=== PATIENT | female | born 1935 | race Caucasian/White ===

== ENCOUNTER → 2017-03-20 | Outpatient (CLI) | payer MEDICARE ==
[~2017-03-20] MED LIST: CHOLESTEROL PILL; CYCL10TA9 PO; HYDR-3714 PO; LVT.1T PO; ONDA-42 SL; PRED20TA PO
--- NOTE | 2017-03-20 19:06 | Diagnostic Imaging Report ---
Bilateral diagnostic mammogram. The current study was also evaluated with a Computer Aided Detection (CAD) system. INDICATION: Palpable lump in the medial aspect of the left breast. COMPARISON: 04/17/2016. FINDINGS: There is a cardiac rehabilitation program director implanted in the medial aspect of the left breast adjacent to the palpable area with no other underlying abnormality seen. The breast parenchyma is heterogeneously dense which may decrease mammographic sensitivity. Scattered benign-appearing calcifications seen. There is no significant change from the prior exam. IMPRESSION: No mammographic evidence of malignancy. Ultrasound evaluation pending. ACR BI-RADS Category 0: Incomplete. (Needs additional imaging evaluation). Result letter will be mailed to the patient. Note: At least 10% of breast cancer is not imaged by mammography. Dictated by: Dictated on workstation # [id number]
--- NOTE | 2017-03-20 19:09 | Diagnostic Imaging Report ---
Ultrasound of the left breast. INDICATION: Palpable lump in the medial aspect of the left breast. FINDINGS: The palpable area corresponds with the implanted photogeologist with no underlying mass identified. IMPRESSION: No suspicious lesion is seen. ACR BI-RADS Category 2: Benign findings. Dictated by: Dictated on workstation # [id number]
== END ==
LOC: RAD 13:36
PROVIDERS: ATTEND Nurse Practitioner
DX: N63 Unspecified lump in breast (principal)
CPT/HCPCS: 76642; 77066

== ENCOUNTER → 2018-11-06 | Outpatient (CLI) | payer MEDICARE ==
--- NOTE | 2018-11-06 15:21 | Diagnostic Imaging Report ---
PROCEDURE: CT head without contrast. TECHNIQUE: Multiple contiguous axial images were obtained through the brain without the use of intravenous contrast. INDICATION: Headaches. Comparison is made with prior head CT from 12/20/2008. The ventricles and sulci appear appropriate for the patient's age. No sulcal effacement is seen. There is no midline shift. No acute intra-axial or extra-axial hemorrhage is detected. Cisterns are patent. The visualized paranasal sinuses are clear. IMPRESSION: No acute intracranial process is detected. Dictated by: Dictated on workstation # [id number]
== END ==
LOC: RAD 13:57
PROVIDERS: ATTEND Internal Medicine
DX: R51 Headache (principal)
CPT/HCPCS: 70450

== ENCOUNTER 2018-11-11 11:45 | Emergency (ER) | payer MEDICARE ==
[~2018-11-11] VITALS: Ht 163.8 cm; Wt 100.7 kg
--- OUTSIDE RECORDS SUMMARY | 2018-11-11 11:51 | XMS REPORT | Clinical Summary ---
Author Author [facility] Organization [facility] Address Unknown Phone Unavailable Care Team Providers Care Hand Laster Name Role Phone Malcom Willis MD Unavailable Source Comments Some departments are not documenting in the electronic medical record. If you do not see the information that you expected, contact Release of Information in the Health Information Management department at [phone] for further assistance in locating additional records.[facility] Allergies Comments Active Allergy Reactions Severity Noted Date bleeding Cephalexin SEE COMMENTS High 05/21/2013 Penicillins HIVES 03/19/2013 Vancomycin RASH Medium 05/24/2016 Medications End Date Status Medication Sig Dispensed Refills Start Date Active levothyroxine (SYNTHROID) Take 100 mcg 0 100 mcg tablet by mouth daily. Active aspirin 81 mg chewable Take 81 mg by 0 tablet mouth daily. Active MULTIVITAMIN Take 1 Tab by 0 W-MINERALS/LUTEIN mouth daily. (CENTRUM SILVER PO) Active CALCIUM CARBONATE/VITAMIN Take 1 Tab by 0 D3 (CALCIUM 600 + D PO) mouth twice daily. Active Hhrtt-4-WXF-EPA-Fish Oil Take 1 Tab by 0 1,000 (120-180) mg cap mouth daily. Active ibuprofen (MOTRIN) 200 mg Take 200 mg 0 tablet by mouth daily. Active acetaminophen (TYLENOL) Take 500 mg 0 500 mg tablet by mouth daily. Active oxybutynin (DITROPAN) 5 Take 1 Tab by 30 Tab 1 10/28/201 mg tablet mouth at 5 bedtime daily. Active atorvastatin (LIPITOR) 10 Take 10 mg by 0 mg tablet mouth daily. Active Problems Problem Noted Date Urge urinary incontinence 03/19/2013 Overview: Status post sling in 2011 which improved DELICIA but worsened UUI. Only taken imipramine; no history of anticholinergic use. Attempted oxybutynin TID, but cannot tolerate, so only takes it daily. 05/24/2016 - patient was referred to PFRT but patient was not able to initiate active contractions of her pelvic floor muscles and therefor unable to perform any strengthening exercises. L ast Assessment & Plan: She would like to attempt pelvic floor muscle training prior to undergoing an invasive procedure. - Rx given for pelvic floor muscle training - Urge suppression information given - Information on botox given and instructed to call if she would like to proceed. Family History Medical History Relation Name Comments Heart Attack Father Heart Disease Father Hypertension Father Cancer Maternal BREAST Grandmother Cancer Mother LUNG Kidney Disease Mother Heart Attack Paternal Grandfather Relation Name Status Comments Father Maternal Grandmother Mother Paternal Grandfather Social History Date Tobacco Use Types Packs/Day Years Used Never Smoker Smokeless Tobacco: Never Used Alcohol Use Drinks/Week oz/Week Comments No Sex Assigned at Date Recorded Not on file Industry Job Start Date Occupation Not on file Not on file Not on file Travel End Travel History Travel Start No recent travel history available. Last Filed Vital Signs Time Taken Vital Sign Reading 05/24/2016 3:28 PM CDT Blood Pressure 130/57 05/24/2016 3:28 PM CDT Pulse 77 - Temperature - - Respiratory Rate - - Oxygen Saturation - - Inhaled Oxygen - Concentration 05/24/2016 3:28 PM CDT Weight 96.8 kg (213 lb 6.4 oz) 05/24/2016 3:28 PM CDT Height 162.6 cm (5' 4") 05/24/2016 3:28 PM CDT Body Mass Index 36.63 Plan of Treatment Health Maintenance Due Date Last Done Comments PHYSICAL (COMPREHENSIVE) 1944 EXAM DTAP/TDAP VACCINES (1 - 1955 Tdap) SHINGLES RECOMBINANT 1987 VACCINE (1 of 2) OSTEOPOROSIS 2002 SCREENING/MONITORING PNEUMONIA (PCV13/PPSV23) 2002 VACCINES (1 of 2 - PCV13) INFLUENZA VACCINE 06/11/2018 Results Not on filefrom Last 3 Months
--- OUTSIDE RECORDS SUMMARY | 2018-11-11 11:52 | XMS REPORT | Continuity of Care Document ---
Author Author [facility] Organization [facility] Address Unknown Phone Unavailable Allergies Active Description Code Type Severity Reaction Onset Reported/Identified Relationship to Patient Clinical Status Yes cephalexin [id number] Drug Allergy Unknown N/A 02/13/2008 Yes Penicillins [id number] Drug Allergy Unknown N/A 02/13/2008 Medications There is no data. Problems Date Dx Coded Attending Type Code Diagnosis Diagnosed By 10/10/1519 NICK PLATA APRN Ot M54.12 RADICULOPATHY, CERVICAL REGION 10/30/2010 Ot 721.0 10/30/2010 Ot 723.1 12/18/2011 Ot 780.2 SYNCOPE AND COLLAPSE 12/31/2012 Ot 726.5 ENTHESOPATHY OF HIP 12/31/2012 Ot V57.1 PHYSICAL THERAPY NEC 07/24/2013 NICK PLATA APRN Ot 726.5 ENTHESOPATHY OF HIP 07/24/2013 NICK PLATA APRN Ot V57.1 PHYSICAL THERAPY NEC 02/03/2015 NICK PLATA APRN Ot 715.96 02/03/2015 NICK PLATA APRN Ot 959.7 02/03/2015 NICK PLATA APRN Ot E000.8 02/03/2015 NICK PLATA APRN Ot E849.0 02/03/2015 NICK PLATA APRN Ot E888.9 02/19/2015 CLIFF TORRES, LOU Preston Ot 720.2 SACROILIITIS NEC 02/19/2015 CLIFF TORRES, LOU Preston Ot 724.3 SCIATICA 03/07/2015 Ot V76.12 03/07/2015 Ot 787.02 03/07/2015 Ot 789.00 03/07/2015 Ot 786.2 03/07/2015 Ot 789.01 03/07/2015 Ot V76.12 03/07/2015 Ot 433.10 03/07/2015 Ot 496 03/07/2015 Ot 244.9 03/07/2015 Ot 272.4 03/07/2015 Ot 287.5 03/07/2015 Ot 401.9 03/07/2015 Ot V76.12 03/07/2015 Ot 780.2 03/07/2015 Ot 496 03/07/2015 Ot V76.12 03/07/2015 ROCIO TORRES, ADRIAN Hillman Ot 433.10 03/07/2015 NICK PLATA HYDROGRAPHIC SURVEYOR Ot 715.96 03/07/2015 NICK PLATA HYDROGRAPHIC SURVEYOR Ot 959.7 03/07/2015 NICK PLATA HYDROGRAPHIC SURVEYOR Ot E000.8 03/07/2015 NICK PLATA HYDROGRAPHIC SURVEYOR Ot E849.0 03/07/2015 NICK PLATA HYDROGRAPHIC SURVEYOR Ot E888.9 04/09/2015 ADRIAN CHAN MD Ot 786.09 04/21/2015 ADRIAN CHAN MD Ot V76.12 05/06/2015 ADRIAN CHAN MD Ot 786.09 04/17/2016 ADRIAN CHAN MD Ot Z12.31 ENCNTR SCREEN MAMMOGRAM FOR MALIGNANT NE 04/18/2016 ADRIAN CHAN MD Ot Z12.31 ENCNTR SCREEN MAMMOGRAM FOR MALIGNANT NE 04/19/2016 ADRIAN CHAN MD Ot Z12.31 ENCNTR SCREEN MAMMOGRAM FOR MALIGNANT NE 04/23/2016 ADRIAN CHAN MD Ot Z12.31 ENCNTR SCREEN MAMMOGRAM FOR MALIGNANT NE 05/08/2016 ADRIAN CHAN MD Ot Z12.31 ENCNTR SCREEN MAMMOGRAM FOR MALIGNANT NE 06/06/2016 NICK PLATA HYDROGRAPHIC SURVEYOR Ot M54.12 RADICULOPATHY, CERVICAL REGION 07/04/2016 ADRIAN CHAN MD Ot M54.2 CERVICALGIA 07/04/2016 ADRIAN CHAN MD Ot R20.0 ANESTHESIA OF SKIN 07/06/2016 Ot 496 CHR AIRWAY OBSTRUCT NEC 07/06/2016 Ot 244.9 HYPOTHYROIDISM NOS 07/06/2016 Ot 272.4 HYPERLIPIDEMIA NEC/NOS 07/06/2016 Ot 287.5 THROMBOCYTOPENIA NOS 07/06/2016 Ot 401.9 HYPERTENSION NOS 07/06/2016 Ot V76.12 OTH SCREEN MAMMO-MALIGN NEOPLASM OF REBEKA 07/06/2016 Ot 780.2 SYNCOPE AND COLLAPSE 07/06/2016 Ot 496 CHR AIRWAY OBSTRUCT NEC 07/06/2016 Ot V76.12 OTH SCREEN MAMMO-MALIGN NEOPLASM OF REBEKA 07/06/2016 ROCIO TORRES, ADRIAN Hillman Ot 433.10 CAROTID ARTERY OCCLUSION W O CEREBRAL IN 07/06/2016 NICK PLATA HYDROGRAPHIC SURVEYOR Ot 715.96 OSTEOARTHROS NOS-L/LEG 07/06/2016 NICK PLATA HYDROGRAPHIC SURVEYOR Ot 959.7 LOWER LEG INJURY NOS 07/06/2016 NICK PLATA HYDROGRAPHIC SURVEYOR Ot E000.8 OTHER EXTERNAL CAUSE STATUS 07/06/2016 NICK PLATA HYDROGRAPHIC SURVEYOR Ot E849.0 ACCIDENT IN HOME 07/06/2016 NICK PLATA HYDROGRAPHIC SURVEYOR Ot E888.9 FALL NOS 07/06/2016 ADRIAN CHAN MD Ot 786.09 RESPIRATORY ABNORM NEC 07/06/2016 ADRIAN CHAN MD Ot V76.12 OTH SCREEN MAMMO-MALIGN NEOPLASM OF REBEKA 07/06/2016 ADRIAN CHAN MD Ot Z12.31 ENCNTR SCREEN MAMMOGRAM FOR MALIGNANT NE 07/06/2016 NICK PLATA HYDROGRAPHIC SURVEYOR Ot M54.12 RADICULOPATHY, CERVICAL REGION 07/06/2016 ADRIAN CHAN MD Ot M54.2 CERVICALGIA 07/06/2016 ADRIAN CHAN MD Ot R20.0 ANESTHESIA OF SKIN 07/06/2016 NICK PLATA HYDROGRAPHIC SURVEYOR Ot M54.12 RADICULOPATHY, CERVICAL REGION 07/17/2016 NICK PLATA HYDROGRAPHIC SURVEYOR Ot M54.12 RADICULOPATHY, CERVICAL REGION 03/11/2017 NICK PLATA HYDROGRAPHIC SURVEYOR Ot N63 UNSPECIFIED LUMP IN BREAST 03/20/2017 NICK PLATA HYDROGRAPHIC SURVEYOR Ot N63 UNSPECIFIED LUMP IN BREAST 03/20/2017 NICK PLATA HYDROGRAPHIC SURVEYOR Ot N63 UNSPECIFIED LUMP IN BREAST 03/21/2017 NICK PLATA HYDROGRAPHIC SURVEYOR Ot N63 UNSPECIFIED LUMP IN BREAST 03/21/2017 NICK PLATA R HYDROGRAPHIC SURVEYOR Ot N63 UNSPECIFIED LUMP IN BREAST 03/21/2017 NICK PLATA HYDROGRAPHIC SURVEYOR Ot N63 UNSPECIFIED LUMP IN BREAST 04/22/2017 NICK PLATA HYDROGRAPHIC SURVEYOR Ot N63 UNSPECIFIED LUMP IN BREAST 04/26/2017 NICK PLATA HYDROGRAPHIC SURVEYOR Ot N63 UNSPECIFIED LUMP IN BREAST Procedures There is no data. Results There is no data. Encounters ACCT No. Visit Date/Time Discharge Status Pt. Type Provider Facility Loc./Unit Complaint [id number] 10/27/2018 15:31:00 10/27/2018 23:59:59 CLS Preadmit ADRIAN CHAN MD [facility] RAD HEADACHES [id number] 03/20/2017 13:36:00 03/20/2017 23:59:59 CLS Outpatient NICK PLATA APRN [facility] RAD BREAST LUMP ABNORMALITY N63 [id number] 06/22/2016 15:30:00 07/17/2016 15:20:00 DIS Outpatient NICK PLATA APRN [facility] REHAB CERVICAL RADICULOPATHY [id number] 07/02/2016 15:27:00 07/02/2016 23:59:59 CLS Outpatient ADRIAN CHAN MD [facility] RAD NECK PAIN [id number] 04/17/2016 14:14:00 04/17/2016 23:59:59 CLS Outpatient ADRIAN CHAN MD [facility] RAD SCREENING [id number] 12/17/2015 16:23:00 12/17/2015 23:59:59 CLS Outpatient ERIN TAMEZ [facility] QUICK [id number] 03/30/2015 10:54:00 03/30/2015 23:59:59 CLS Outpatient ADRIAN CHAN MD [facility] RAD SCREENING [id number] 03/07/2015 11:37:00 03/07/2015 23:59:59 CLS Outpatient ADRIAN CHAN MD [facility] RAD DYSPENA [id number] 02/19/2015 13:42:00 02/19/2015 14:50:00 DIS Emergency LOU CORONADO MD [facility] ER BACK PAIN [id number] 07/26/2014 15:50:00 07/26/2014 23:59:59 CLS Outpatient NICK PLATA APRN [facility] RAD LT KNEE PAIN [id number] 01/23/2014 16:41:00 01/23/2014 23:59:59 CLS Outpatient [id number] 07/09/2013 12:00:00 07/24/2013 13:48:00 DIS Outpatient NICK PLATA APRN [facility] REHAB HIP BURSITIS [id number] 06/24/2013 12:00:00 06/24/2013 23:59:59 CLS Outpatient ADRIAN CHAN MD [facility] RAD CAROTID OCCLUSIVE DISEASE [id number] 03/07/2015 11:37:00 Document Registration [id number] 03/07/2015 11:37:00 Document Registration [id number] 12/31/2012 13:46:00 Document Registration [id number] 12/18/2012 11:37:00 Document Registration [id number] 01/23/2012 16:45:00 Document Registration [id number] 12/19/2011 11:00:00 Document Registration [id number] 11/15/2011 11:26:00 Document Registration [id number] 09/21/2011 10:33:00 Document Registration [id number] 09/19/2011 10:46:00 Document Registration [id number] 03/21/2011 08:12:00 Document Registration [id number] 11/09/2010 10:54:00 Document Registration [id number] 10/30/2010 19:38:00 Document Registration [id number] 10/24/2010 09:19:00 Document Registration [id number] 06/08/2010 07:51:00 Document Registration [id number] 02/08/2010 13:09:00 Document Registration [id number] 12/28/2009 08:54:00 Document Registration [id number] 10/18/2009 09:38:00 Document Registration [id number] 03/30/2015 10:54:58 ACT Document Registration
[2018-11-11 12:17] LABS: BILIRUBIN,URINE NEGATIVE (NEGATIVE); CLARITY,URINE BLOODY; COLOR,URINE RED; GLUCOSE, URINE (UA) NEGATIVE (NEGATIVE); KETONES,URINE 1+ (NEGATIVE); LEUKOCYTE ESTERASE ,URINE 3+ (NEGATIVE); NITRITE,URINE POSITIVE (NEGATIVE); PH,URINE 7 (5-9); PROTEIN,URINE 3+ (NEGATIVE); UROBILINOGEN,URINE 1 MG/DL (NORMAL)
--- NOTE | 2018-11-11 12:28 | ED GU-Female ---
General Chief Complaint: -Female Stated Complaint: ABD PAIN,BLEEDING Nursing Triage Note: Pt ambulated to rm 9 w/o difficulty. Pt c/o frequency, hematuria, and dysuria that began last night and has worsened today. Nursing Sepsis Screen: No Definite Risk Source: patient Exam Limitations: no limitations History of Present Illness Date Seen by Provider: Nov 11, 2018 Time Seen by Provider: 12:15 Initial Comments Here with report of urinary frequency with some pain and notes some blood in her urine that is worse today. States that she's felt off for a couple days. Denies vomiting but does have some nausea. Denies fevers but did have some chills yesterday. Timing/Duration: yesterday, getting worse Severity/Quality: moderate, cramping Location: suprapubic Radiation: none Activities at Onset: none Modifying Factors: Improves With Resting; Worsens With Urinating Associated Symptoms: dysuria, urinary frequency Allergies and Home Medications Allergies Coded Allergies: Cephalexin (Verified Allergy, Unknown, 02/13/08) Penicillins (Verified Allergy, Unknown, 02/13/08) Home Medications Cyclobenzaprine Hcl 10 Mg Tablet, 1 EACH PO Q8H PRN for SPASMS Prescribed by: LOU NESBITT on 02/19/15 1443 Hydrocodone Bit/Acetaminophen 1 Tab Tablet, 1-2 TAB PO Q4H PRN for PAIN Prescribed by: LOU NESBITT on 02/19/15 1443 Levothyroxine Sodium 100 Mcg Tablet, PO DAILY, (Reported) Ondansetron Hcl 4 Mg Tab, 4 MG SL Q4H PRN Prescribed by: LOU NESBITT on 02/19/15 1443 Prednisone 20 Mg Tablet, 40 MG PO DAILY Prescribed by: LOU NESBITT on 02/19/15 1443 Patient Home Medication List Home Medication List Reviewed: Yes Review of Systems Review of Systems Constitutional: see HPI, chills; No fever EENTM: no symptoms reported Respiratory: no symptoms reported Cardiovascular: no symptoms reported Gastrointestinal: see HPI Genitourinary: see HPI Musculoskeletal: no symptoms reported Skin: no symptoms reported Past Rmppfmt-Rxpsui-Pcxzps Hx Patient Social History Alcohol Use: Denies Use Recreational Drug Use: No 2nd Hand Smoke Exposure: No Recent Foreign Travel: No Contact w/Someone Who Travel: No Recent Infectious Disease Expo: No Recent Hopitalizations: Yes (LEG SURGERY, REACTION TO MEDICATION CAUSED HEMMORAGES DECREASED PLATLETS) Physical Abuse: No Sexual Abuse: No Past Medical History Surgeries: Yes (LEG SURGERY, L KNEE) Coronary Stent, Joint Replacement, Orthopedic Respiratory: Yes ("HOLDS IN TOO MUCH O2") Cardiac: Yes Coronary Artery Disease Neurological: No Reproductive Disorders: No Gastrointestinal: No Musculoskeletal: Yes Arthritis Endocrine: Yes Hypothyroidsim Cancer: No Psychosocial: Yes Blood Disorders: No Family Medical History Reviewed Nursing Family Hx Physical Exam Vital Signs Vital Signs - First Documented 11/11/18 11:52 Temp 98.5 Pulse 86 Resp 15 B/P (MAP) 148/83 (104) Pulse Ox 100 O2 Delivery Room Air Capillary Refill : Less Than 3 Seconds Height, Weight, BMI Height: 5'4.50" Weight: 222lbs. oz. 100.599609fp; BMI Method:Stated General Appearance: WD/WN, no apparent distress Cardiovascular: regular rate, rhythm, no murmur Respiratory: lungs clear, normal breath sounds Gastrointestinal: soft; No guarding, No rebound; tenderness (suprapubic) Back: normal inspection, no CVA tenderness, no vertebral tenderness Neurologic/Psychiatric: alert, oriented x 3 Skin: normal color, warm/dry Progress/Results/Core Measures Suspected Sepsis Recent Fever Within 48 Hours: No Infection Criteria Present: None New/Unexplained Altered Menta: No Sepsis Screen: No Definite Risk SIRS Temperature:98.5 Pulse: 86 Respiratory Rate: 15 Blood Pressure 148 /83 Mean: 104 Results/Orders Lab Results Laboratory Tests Test 11/11/18 11:55 Range/Units Urine Color RED H Urine Clarity BLOODY H Urine pH 7 5-9 Urine Specific Delta 1.010 L 1.016-1.022 Urine Protein 3+ H NEGATIVE Urine Glucose (UA) NEGATIVE NEGATIVE Urine Ketones 1+ H NEGATIVE Urine Nitrite POSITIVE H NEGATIVE Urine Bilirubin NEGATIVE NEGATIVE Urine Urobilinogen 1 NORMAL MG/DL Urine Leukocyte Esterase 3+ H NEGATIVE Urine RBC (Auto) 5+ H NEGATIVE Urine RBC TNTC H /HPF Urine WBC TNTC H /HPF Urine Squamous Epithelial Cells 2-5 /HPF Urine Crystals NONE /LPF Urine Bacteria LARGE H /HPF Urine Casts NONE /LPF Urine Mucus NEGATIVE /LPF Urine Culture Indicated YES My Orders Orders - HENRI GUILLEN MD Ua Culture If Indicated (11/11/18 12:12) Vital Signs/I&O 11/11/18 11:52 Temp 98.5 Pulse 86 Resp 15 B/P (MAP) 148/83 (104) Pulse Ox 100 O2 Delivery Room Air Capillary Refill : Less Than 3 Seconds Blood Pressure Mean: 104 Progress Note : Progress Note Seen and evaluated. UA ordered. Monitor patient. 1245: UA positive. We will initiate nitrofurantoin due to her allergies. This will be started as a prescription. She will get that filled today and start first dose when she picks it up. Discharged home with return precautions. Patient verbalize understanding instructions and agreement with plan. Departure Impression Primary Impression: Urinary tract infection Qualified Codes: N30.01 - Acute cystitis with hematuria Disposition: HOME, SELF-CARE Condition: Improved Departure-Patient Inst. Decision time for Depature: 12:47 Referrals: ADRIAN CHAN MD (PCP/Family) Primary Care Physician Patient Instructions: Urinary Tract Infection, Adult (DC) Add. Discharge Instructions: All discharge instructions reviewed with patient and/or family. Voiced understanding. Drink plenty of fluids. Take medications as directed. You should take your first dose of antibiotic is some nausea given and the next dose tonight before he got a bed. Then start twice daily dosing tomorrow as prescribed. Follow-up with your DrTavo in a few days for recheck. Return for worse pain, fever, vomiting , weakness, breathing problems or other concerns as needed. Scripts Nitrofurantoin Macrocrystal (Nitrofurantoin) 100 Mg Capsule 100 MG PO BID, #14 CAP 0 Refills Prov: HENRI GUILLEN MD 11/11/18 HENRI GUILLEN MD Nov 11, 2018 12:28
[2018-11-11 12:33] LABS: RBC,URINE TNTC /HPF; WBC,URINE TNTC /HPF
[2018-11-11 12:34] LABS: BACTERIA,URINE LARGE /HPF
[2018-11-11] MEDS ORDERED: NITR100C PO (12:46)
[2018-11-11 12:50] VITALS: BP 148/83
== END 2018-11-11 12:50 | disposition home or self-care (01) ==
LOC: EDUNIT# 11:45 → ER 11:46
DX: N39.0 Urinary tract infection, site not specified (principal); I25.10 Atherosclerotic heart disease of native coronary artery without angina pectoris; E03.9 Hypothyroidism, unspecified; Z88.0 Allergy status to penicillin; Z88.1 Allergy status to other antibiotic agents; Z79.52 Long term (current) use of systemic steroids; Z98.890 Other specified postprocedural states; Z95.5 Presence of coronary angioplasty implant and graft
CPT/HCPCS: 81000; 87077; 87088; 99282

== ENCOUNTER → 2019-04-09 | Outpatient (CLI) | payer MEDICARE ==
[~2019-04-09] MED LIST changes: +NITR100C PO
[2019-04-09 13:07] LABS: HEMOGLOBIN 13.7 G/DL (11.5-16.0); RED CELL DISTRIBUTION WIDTH 12.6 % (10.0-14.5); WHITE BLOOD COUNT 6.8 10^3/uL (4.3-11.0)
[2019-04-09 13:32] LABS: ALANINE AMINOTRANSFERASE 16 U/L (0-55); ALBUMIN 4.3 GM/DL (3.2-4.5); ALKALINE PHOSPHATASE 119 U/L (40-136); BILIRUBIN,TOTAL 0.8 MG/DL (0.1-1.0); BUN/CREATININE RATIO 18; CALCIUM 10.2 MG/DL (8.5-10.1); CARBON DIOXIDE 24 MMOL/L (21-32); CHLORIDE 101 MMOL/L (98-107); CREATININE SERUM 0.76 MG/DL (0.60-1.30); GFR ESTIMATED > 60; GLUCOSE 90 MG/DL (70-105); POTASSIUM 4.3 MMOL/L (3.6-5.0); SODIUM 134 MMOL/L (135-145); TOTAL PROTEIN 7.4 GM/DL (6.4-8.2)
--- NOTE | 2019-04-09 13:49 | Diagnostic Imaging Report ---
PROCEDURE: CT head without contrast. TECHNIQUE: Multiple contiguous axial images were obtained through the brain without the use of intravenous contrast. Auto Exposure Controls were utilized during the CT exam to meet ALARA standards for radiation dose reduction. INDICATION: Dizziness and not feeling well. Study compared 11/06/2018. There is no intracranial hemorrhage. There is mild periventricular white matter disease chronic and commonly encountered in patient's of this age and most often attributed to small vessel sequelae. No sulcal effacement. The basilar cisterns are patent. No loss of the cortical aleman-white matter differentiations. There is mild intracranial atherosclerotic vascular calcifications chronic. No focal or generalized cerebral edema. No mass or mass effect. No evidence for elevated pressures. Orbits, sinuses and calvarium appeared nonacute where visualized. IMPRESSION: Stable mild chronic senescent findings with no hemorrhage, edema or acute finding. Dictated by: Dictated on workstation # [id number]
--- NOTE | 2019-04-09 14:00 | Diagnostic Imaging Report ---
INDICATION: Shortness of breath, dizziness, headache, and fatigue. TECHNIQUE: Two-view chest at 01:22 p.m. CORRELATION STUDY: 03/07/2015. FINDINGS: The heart size, mediastinal configuration and pulmonary vasculature are within normal limits. Loop recorder device has been placed projecting over the left anterior chest. Densely calcified right hilar and subcarinal granulomas are again demonstrated. The lungs are clear with no consolidating infiltrate. There is no significant pleural effusion or pneumothorax. Calcified granuloma at the right lung base. Mildly accentuated thoracic kyphosis with disc space narrowing and bridging osteophytes anteriorly. IMPRESSION: 1. Negative for acute abnormality of the chest. Dictated by: Dictated on workstation # [id number]
== END ==
LOC: RAD 12:43
PROVIDERS: ATTEND Physician Assistant
DX: R54 Age-related physical debility (principal); R06.02 Shortness of breath; R51 Headache
CPT/HCPCS: 36415; 70450; 71046; 80053; 84443; 84484; 85027; 93005

== ENCOUNTER → 2020-06-30 | Outpatient (CLI) | payer MEDICARE ==
--- NOTE | 2020-06-30 15:04 | Diagnostic Imaging Report ---
INDICATION: Palpable lump left breast. Correlation is made with prior mammogram from 03/20/2017 and 04/17/2016. 2-D and 3-D bilateral diagnostic mammography was performed with CAD. Scattered fibroglandular densities are identified bilaterally. A cardiac monitoring device overlies the medial left breast. Overall parenchymal pattern is stable. No dominant mass or malignant-appearing microcalcifications are seen. There are benign calcifications bilaterally. Axillae are unremarkable. IMPRESSION: BI-RADS Category 0 No mammographic features suspicious for malignancy are identified. Even so, directed sonographic interrogation of the area of palpable abnormality in the left breast is recommended and will be performed today. ACR BI-RADS Category 0: Incomplete. (Needs additional imaging evaluation). Result letter will be mailed to the patient. Note: At least 10% of breast cancer is not imaged by mammography. Dictated by: Dictated on workstation # [id number]
--- NOTE | 2020-06-30 16:28 | Diagnostic Imaging Report ---
INDICATION: Palpable lump left breast. COMPARISON: Correlation is made with diagnostic mammogram from earlier the same day. FINDINGS: Sonographic interrogation of the area of lump in left breast was performed. This corresponds to the 10:00 location, 10 cm from the nipple. Echogenic device at this location is noted corresponding to patient's known cardiac monitoring device. This likely represents the palpable abnormality. No other sonographic abnormality is detected. IMPRESSION: The area of palpable abnormality in the left breast 10 o'clock location corresponds to the patient's cardiac monitoring device. No other abnormality is detected. Dictated by: Dictated on workstation # [id number]
== END ==
LOC: RAD 14:07
PROVIDERS: ATTEND Internal Medicine
DX: N63.20 Unspecified lump in the left breast, unspecified quadrant (principal)
CPT/HCPCS: 76642; 77066; G0279; 77062

== ENCOUNTER → 2021-04-19 | Outpatient (CLI) | payer MEDICARE ==
--- NOTE | 2021-04-19 10:42 | Diagnostic Imaging Report ---
INDICATION: Abnormal lung sounds and dyspnea. Comparison made with prior examination from 04/09/2019. FINDINGS: Heart size is normal. While this pacemaker overlies left heart border. There are calcified granulomas in the right hilum. There is no pleural effusion, pneumothorax or pneumonia. Mediastinum is unremarkable. IMPRESSION: No acute cardiac pulmonary abnormality. Dictated by: Dictated on workstation # [id number]
== END ==
LOC: RAD 09:58
PROVIDERS: ATTEND Internal Medicine
DX: R06.00 Dyspnea, unspecified (principal); R09.89 Other specified symptoms and signs involving the circulatory and respiratory systems
CPT/HCPCS: 71046

== ENCOUNTER → 2021-04-20 | Outpatient (CLI) | payer MEDICARE | LOC: LABNPT 06:33 | PROVIDERS: ATTEND Internal Medicine | DX: R53.83 Other fatigue (principal); R06.02 Shortness of breath; R42 Dizziness and giddiness; Z20.822 Contact with and (suspected) exposure to COVID-19 | CPT/HCPCS: 87635 ==

== ENCOUNTER → 2021-06-16 | Outpatient (CLI) | payer MEDICARE ==
[~2021-06-16] VITALS: Ht 162.6 cm; Wt 96.4 kg
[~2021-06-16] MED LIST changes: +NS IV 1000 ML 1,000 ML IV SCH
[2021-06-16 13:09] VITALS: BP 138/75
[2021-06-16 13:17] LABS: HEMATOCRIT 41 % (35-52); HEMOGLOBIN 13.6 g/dL (11.5-16.0); MEAN CORPUSCULAR HEMOGLOBIN 30 pg (25-34); MEAN CORPUSCULAR HGB CONC 33 g/dL (32-36); MEAN CORPUSCULAR VOLUME 90 fL (80-99); MEAN PLATELET VOLUME 9.3 fL (9.0-12.2); PLATELET COUNT 325 10^3/uL (130-400); WHITE BLOOD COUNT 12.3 10^3/uL (4.3-11.0)
[2021-06-16 13:29] LABS: ALBUMIN 3.8 GM/DL (3.2-4.5); BILIRUBIN,TOTAL 0.7 MG/DL (0.1-1.0); CALCIUM 10.2 MG/DL (8.5-10.1); CREATININE SERUM 0.72 MG/DL (0.60-1.30); POTASSIUM 3.6 MMOL/L (3.6-5.0); TOTAL PROTEIN 7.3 GM/DL (6.4-8.2)
--- NOTE | 2021-06-16 14:12 | Diagnostic Imaging Report ---
INDICATION: Cough and shortness of breath. PA and lateral chest There are calcified right hilar lymph nodes. There is a loop recorder projecting over left lower chest. Heart size and pulmonary vascularity are normal. Lungs are clear. There are no effusions or pneumothoraces. IMPRESSION: No acute abnormalities in the chest. Dictated by: Dictated on workstation # [id number]
== END ==
LOC: RAD 12:39
PROVIDERS: ATTEND Nurse Practitioner Family
DX: R05 Cough (principal); R06.02 Shortness of breath
CPT/HCPCS: 36415; 71046; 80053; 85027; 85379; 96360

== ENCOUNTER 2021-12-07 13:00 | Outpatient (RCR) | payer MEDICARE ==
[~2021-12-07 13:00] MED LIST changes: -NS IV 1000 ML 1,000 ML IV SCH
== END 2021-12-11 | disposition home or self-care (01) ==
PROVIDERS: ATTEND Urology
DX: N39.41 Urge incontinence (principal)

== ENCOUNTER 2021-12-21 13:05 | Outpatient (RCR) | payer MEDICARE | END 2022-01-08 15:03 | disposition home or self-care (01) | PROVIDERS: ATTEND Urology | DX: N39.41 Urge incontinence (principal); J45.909 Unspecified asthma, uncomplicated ==

== ENCOUNTER → 2022-09-12 | Outpatient (CLI) | payer MEDICARE ==
--- NOTE | 2022-09-13 10:18 | Diagnostic Imaging Report ---
Indication: Routine screening. Comparison is made with prior mammograms from 06/30/2020 and 03/20/2017. 2-D and 3-D bilateral screening mammography was performed with CAD. Scattered fibroglandular densities are identified bilaterally. A loop recorder overlies the medial left breast soft tissues. The breast parenchymal pattern appears to be stable. No mass or malignant-appearing microcalcifications are seen. There are benign calcifications bilaterally. Axillae are unremarkable. IMPRESSION: BI-RADS Category 2 No mammographic features suspicious for malignancy are identified. ACR BI-RADS Category 2: Benign findings. Result letter will be mailed to the patient. Note: At least 10% of breast cancer is not imaged by mammography. Dictated by: Dictated on workstation # [id number]
== END ==
LOC: RAD 14:15
PROVIDERS: ATTEND Internal Medicine
DX: Z12.31 Encounter for screening mammogram for malignant neoplasm of breast (principal)
CPT/HCPCS: 77063; 77067

== ENCOUNTER → 2023-02-27 | Outpatient (CLI) | payer MEDICARE ==
--- NOTE | 2023-02-27 14:26 | Diagnostic Imaging Report ---
PROCEDURE: US carotid duplex, bilateral. TECHNIQUE: Multiple real-time grayscale images were obtained over the carotid arteries in various projections, bilaterally. Additional spectral analysis and color Doppler duplex images were also obtained. INDICATION: TIA Findings: Parameters based on the consensus panel [employer] and Doppler ultrasound criteria published September 2003, Radiology, Volume 229. DOPPLER (peak systolic velocity M/S Right Left CCA .88 .75 ICA Proximal .62 .43 ICA Mid .58 .56 ICA Distal .60 .53 RATIO .71 .75 ECA 1.2 .59 VERT .41 .60 Impression: Right greater than left carotid atherosclerosis without significant stenosis. Patent bilateral vertebral arteries. Dictated by: Dictated on workstation # [id number]
== END ==
LOC: RAD 12:29
PROVIDERS: ATTEND Internal Medicine
DX: G45.9 Transient cerebral ischemic attack, unspecified (principal)
CPT/HCPCS: 93880